=== PATIENT | female | born 1970 | race Two or more races ===

== ENCOUNTER 2018-01-27 12:30 | Outpatient (CLI) | payer OTHER | END 2018-01-27 13:16 | disposition home or self-care (01) | LOC: MAMO-SONO 12:30 | DX: N60.11 Diffuse cystic mastopathy of right breast (principal); N60.12 Diffuse cystic mastopathy of left breast; Z12.31 Encounter for screening mammogram for malignant neoplasm of breast ==

== ENCOUNTER → 2022-01-14 | Day surgery (SDC) | payer OTHER ==
[~2022-01-14] VITALS: Ht 167.6 cm; Wt 79.4 kg
[~2022-01-14] MED LIST: ATACAND4 MG PO; GLUMETZA500 MG PO; LIPITOR20 MG PO; ULTRACET PO
== END | disposition home or self-care (01) ==
LOC: ADM 01-09 07:30 → CIR.AMB 06:15
PROVIDERS: ATTEND Obstetrics & Gynecology Gynecology
DX: N84.0 Polyp of corpus uteri (principal); D25.9 Leiomyoma of uterus, unspecified; N72 Inflammatory disease of cervix uteri; Z88.6 Allergy status to analgesic agent; I10 Essential (primary) hypertension; E11.9 Type 2 diabetes mellitus without complications; Z79.84 Long term (current) use of oral hypoglycemic drugs; Z20.822 Contact with and (suspected) exposure to COVID-19